=== PATIENT | male | born 1980 | race Asian ===

== ENCOUNTER 2017-12-21 11:45 | Emergency (ER) | payer BC ==
[~2017-12-21] VITALS: Ht 165.1 cm; Wt 54.8 kg
[2017-12-21 12:34] LABS: HEMATOCRIT 45.4 % (38.0-50.0); HEMOGLOBIN 14.9 G/DL (12.5-16.6); MCH 28.9 PG (29.0-34.0); MCHC 32.8 G/DL (30.0-36.0); PLATELET COUNT 296 K/uL (156-360); RBC DIS.WIDTH-CV 12.9 % (11.8-14.6); RBC DIS.WIDTH-SD 41.7 % (39-53); RED BLOOD COUNT 5.16 M/uL (4.00-5.50); WHITE BLOOD COUNT 6.5 K/uL (4.1-10.2)
[2017-12-21 12:43] LABS: APPEARANCE CLEAR ((CLEAR)); BILIRUBIN NEGATIVE; BLOOD LARGE; COLOR YELLOW ((YELLOW)); GLUCOSE (STRIP) NEGATIVE; KETONES NEGATIVE; LEUKOCYTES NEGATIVE; NITRITE NEGATIVE; PROTEIN (STRIP) NEGATIVE; SPECIFIC GRAVITY 1.011 (1.000-1.030); UROBILINOGEN 0.2 MG/DL (0.2-1.0)
[2017-12-21 12:44] LABS: CHLORIDE 106 mEq/L (99-109); POTASSIUM 4.2 mEq/L (3.7-5.4); SODIUM 141 mEq/L (136-147)
[2017-12-21 12:45] LABS: GLUCOSE 91 mg/dL (70-99)
[2017-12-21 12:49] LABS: CREATININE 0.8 mg/dL (0.6-1.3)
[2017-12-21 12:50] LABS: UREA NITROGEN (BUN) 9 mg/dL (9-23)
[2017-12-21 12:52] LABS: BACTERIA NONE SEEN /HPF; EPITHELIAL CELLS NONE SEEN /HPF; MUCUS TRACE /LPF; UCUL ADDED? NO; WHITE BLOOD CELLS 0-5 /HPF (0-5)
[2017-12-21 12:52] LABS: GFR ESTIMATE (CALCULATED) > 59 mL/min/ (58.99-99999)
[2017-12-21 17:08] VITALS: BP 102/60
== END 2017-12-21 17:09 | disposition home or self-care (01) ==
LOC: EME 11:45 → RME 11:45
DX: R31.9 Hematuria, unspecified (principal); M54.9 Dorsalgia, unspecified; F17.200 Nicotine dependence, unspecified, uncomplicated
CPT/HCPCS: 74176; 80048; 81003; 85027; 99281; 99285

== ENCOUNTER 2018-04-05 01:44 | Emergency (ER) | payer BC ==
[~2018-04-05] VITALS: Ht 182.9 cm; Wt 54.9 kg
[2018-04-05 02:38] LABS: HEMATOCRIT 44.3 % (38.0-50.0); HEMOGLOBIN 14.7 G/DL (12.5-16.6); MCH 28.7 PG (29.0-34.0); MCHC 33.2 G/DL (30.0-36.0); MCV 86.4 FL (86-99); PLATELET COUNT 244 K/uL (156-360); RBC DIS.WIDTH-CV 13.3 % (11.8-14.6); RBC DIS.WIDTH-SD 41.9 % (39-53); RED BLOOD COUNT 5.13 M/uL (4.00-5.50); WHITE BLOOD COUNT 5.8 K/uL (4.1-10.2)
[2018-04-05 02:46] LABS: ALBUMIN 3.9 g/dL (3.2-4.8); CHLORIDE 103 mEq/L (99-109); POTASSIUM 3.7 mEq/L (3.7-5.4); SODIUM 137 mEq/L (136-147)
[2018-04-05 02:49] LABS: GLUCOSE 104 mg/dL (70-99); TOTAL PROTEIN 7.3 g/dL (6.4-8.3)
[2018-04-05 02:50] LABS: TOTAL BILIRUBIN 0.5 mg/dL (0.0-1.0)
[2018-04-05 02:52] LABS: ALKALINE PHOSPHATASE 86 IU/L (3-129); CREATININE 0.8 mg/dL (0.6-1.3); GFR ESTIMATE (CALCULATED) > 59 mL/min/ (58.99-99999)
[2018-04-05 02:53] LABS: UREA NITROGEN (BUN) 8 mg/dL (9-23)
[2018-04-05 02:54] LABS: AST (GOT) 14 IU/L (2-34); DIRECT BILIRUBIN 0.3 mg/dL (0.0-0.3)
[2018-04-05 02:55] LABS: ALT (GPT) 18 IU/L (3-49)
[2018-04-05] MEDS ORDERED: ZOFRAN ODT8 MG PO (03:06)
[2018-04-05 03:12] LABS: ABS NEUTROPHIL COUNT 2.3; ACANTHOCYTES 1+; BAND NEUTROPHILS 27.8 % (0-8.0); BASOPHILS 1.7 %; BURR CELLS 3+; EOSINOPHIL ABS CT 0.3; EOSINOPHILS 4.4 % (0-5.0); LYMPHOCYTES 28.7 % (15.0-45.0); METAMYELOCYTES 5.2 %; OVALOCYTES 1+; PLAT.SUFFICIENCY ADEQUATE; POIKILOCYTOSIS 3+; SEG.NEUTROPHILS 12.2 % (46.0-76.0)
[2018-04-05 03:19] VITALS: BP 103/68
== END 2018-04-05 03:20 | disposition home or self-care (01) ==
LOC: EME 01:44 → EXP 01:44
PROVIDERS: Physician Assistant
DX: J02.0 Streptococcal pharyngitis (principal); R19.7 Diarrhea, unspecified; F17.200 Nicotine dependence, unspecified, uncomplicated
CPT/HCPCS: 80048; 80053; 80076; 81003; 85025; 85027; 87651 90; 99281; 99285; J0561; J1885; J2405; J7030